=== PATIENT | female | born 1990 | race Caucasian/White ===

== ENCOUNTER 2018-04-07 02:16 | Emergency (ER) | payer BC ==
[2018-04-07] MEDS ORDERED: Iohexol 240 (50 ml) PO ONE (02:57)
--- NOTE | 2018-04-07 02:59 | ED PDOC ---
HPI: Abdomen Chief Complaint (Provider): abdominal pain History Per: Patient, Family History/Exam Limitations: no limitations Onset/Duration Of Symptoms: Hrs Current Symptoms Are (Timing): Still Present Location Of Pain/Discomfort: RLQ Quality Of Discomfort: "Pain" <Estefany West - Last Filed: 04/07/18 05:50> <Janice Vaughan A - Last Filed: 04/08/18 03:37> Time Seen by Provider: 04/07/18 02:37 Chief Complaint (Nursing): Abdominal Pain Additional Complaint(s): 27 y/o female presents for evaluation of right lower abdominal pain x 2 hours. Associated nausea. DEnies fever, vomiting, chest pain, shortness of breath, palpitations, changes in bowel movements, urinary symptoms. No improvement with tums. (Estefany West) Past Medical History Reviewed: Historical Data, Nursing Documentation, Vital Signs - Medical History PMH: Hypothyroidism - Family History Family History: States: No Known Family Hx - Living Arrangements Living Arrangements: With Family <Estefany West - Last Filed: 04/07/18 05:50> <Janice Vaughan - Last Filed: 04/08/18 03:37> Vital Signs: Last Vital Signs Temp 98.0 F 04/07/18 11:16 Pulse 70 04/07/18 11:16 Resp 16 04/07/18 11:16 BP 100/61 04/07/18 11:16 Pulse Ox 99 04/07/18 11:16 - Allergies Allergies/Adverse Reactions: Allergies Allergy/AdvReac Type Severity Reaction Status Date / Time No Known Allergies Allergy Verified 04/07/18 02:29 Review of Systems ROS Statement: Except As Marked, All Systems Reviewed And Found Negative Gastrointestinal: Positive for: Abdominal Pain <Estefany West - Last Filed: 04/07/18 05:50> Physical Exam - Reviewed Nursing Documentation Reviewed: Yes Vital Signs Reviewed: Yes - Physical Exam Appears: Positive for: Well, Non-toxic, Uncomfortable Head Exam: Positive for: ATRAUMATIC, NORMAL INSPECTION, NORMOCEPHALIC Skin: Positive for: Normal Color Eye Exam: Positive for: Normal appearance ENT: Positive for: Normal ENT Inspection Cardiovascular/Chest: Positive for: Regular Rate, Rhythm Respiratory: Positive for: Normal Breath Sounds Gastrointestinal/Abdominal: Positive for: Bowel Sounds, Soft, Tenderness (RLQ). Negative for: Guarding, Rebound Back: Positive for: Normal Inspection Extremity: Positive for: Normal ROM Neurologic/Psych: Positive for: Alert, Oriented <Estefany West - Last Filed: 04/07/18 05:50> - Laboratory Results Result Diagrams: 04/07/18 03:16 04/07/18 03:16 - ECG O2 Sat by Pulse Oximetry: 100 <Estefany West - Last Filed: 04/07/18 05:50> - Laboratory Results Result Diagrams: 04/07/18 03:16 04/07/18 03:16 <Janice Vaughan - Last Filed: 04/08/18 03:37> Disposition - Disposition Disposition Time: 06:00 Patient Signed Over To: Janice Vaughan Handoff Comments: pending CT <Estefany West - Last Filed: 04/07/18 05:50> - Patient ED Disposition Is Patient to be Admitted: Transfer of Care Counseled Patient/Family Regarding: Studies Performed, Diagnosis - Disposition Disposition: Transfer of Care Disposition Time: 07:00 Patient Signed Over To: Torri Lassiter <Janice Vaughan - Last Filed: 04/08/18 03:37> - Clinical Impression Clinical Impression: Abdominal pain - Disposition Referrals: Angie Manning [Outside] Condition: STABLE Instructions: Acute Abdomen (Belly Pain), Adult (DC) Forms: [employer] ([place]ian)
[2018-04-07] MEDS ORDERED: Iohexol 240 (50 ml) ONE (03:18)
[2018-04-07 03:20] LABS: BASO % 0.4 % (0.0-2.0); EOS # 0.2 K/uL (0.0-0.7); EOS % 2.4 % (0.0-4.0); HEMOGLOBIN 13.1 g/dL (12.0-16.0); LYMPH # 2.3 K/uL (1.0-4.3); LYMPH % 30.5 % (20.0-40.0); MEAN CELL VOLUME 86.1 fl (81.0-99.0); MEAN CORPUSCULAR HEMOGLOBIN 29.7 pg (27.0-31.0); MEAN CORPUSCULAR HGB CONC 34.5 g/dL (33.0-37.0); MONO # 0.6 K/uL (0.0-0.8); MONO % 8.1 % (0.0-10.0); NEUT # 4.4 K/uL (1.8-7.0); NEUT % 58.6 % (50.0-75.0); NRBC % 0.1 % (0.0-0.0); RBC 4.42 Mil/uL (3.80-5.20); RED CELL DISTRIBUTION WIDTH 13.3 % (11.5-14.5); WHITE BLOOD COUNT 7.6 K/uL (4.8-10.8)
[2018-04-07 03:29] LABS: ALB/GLOB RATIO 1.4 (1.0-2.1); ALBUMIN 4.2 g/dL (3.5-5.0); ALT/SGPT 17 U/L (9-52); AST/SGOT 23 U/L (14-36); BLOOD UREA NITROGEN 11 mg/dl (7-17); CALCIUM 9.3 mg/dL (8.4-10.2); GFR AFRICAN-AMERICAN > 60; GFR NON-AFRICAN AMERICAN > 60
[2018-04-07 03:33] LABS: PROTHROMBIN TIME 10.5 Seconds (9.8-13.1)
[2018-04-07 03:34] LABS: PARTIAL THROMBOPLASTIN TIME 29.2 Seconds (25.6-37.1)
[2018-04-07] MEDS ORDERED: Iohexol 300 100 ML IJ ONE (06:30)
[2018-04-07] MEDS ORDERED: Sodium Chloride 0.9% 1,000 ML IV STA (07:53)
--- NOTE | 2018-04-07 07:59 | ED PDOC ---
- Laboratory Results Result Diagrams: 04/07/18 03:16 04/07/18 03:16 - ECG O2 Sat by Pulse Oximetry: 100 Medical Decision Making Medical Decision Making: received patient endorsement from Dr. Vaughan. Patient had CT at 5:30am with normal reading by [facility]. He signed out to have US pelvis if CT is normal. US ordered 10.30a - patient is completely without pain. CT and US normal. labs unrevealing Disposition Doctor Will See Patient In The: Office Counseled Patient/Family Regarding: Diagnosis, Need For Followup - Clinical Impression Clinical Impression: Abdominal pain - POA Present On Arrival: None - Disposition Referrals: Angie Manning [Outside] Disposition: Routine/Home Disposition Time: 10:30 Condition: STABLE Instructions: Acute Abdomen (Belly Pain), Adult (DC) Forms: [employer] ([place])
[2018-04-07 08:05] VITALS: RESP 16
--- NOTE | 2018-04-07 09:39 | US ---
HISTORY: RLQ pain with normal CT scan COMPARISON: None available. TECHNIQUE: Transabdominal and transvaginal pelvic ultrasound was performed with longitudinal and transverse images submitted for interpretation. FINDINGS: UTERUS: Measures 7.6 x 3.6 x 5.4 cm. Normal in size and appearance. No fibroid or other mass lesion seen. ENDOMETRIUM: Measures 9.4 mm in diameter. Unremarkable. CERVIX: No cervical abnormality identified. RIGHT OVARY: Measures 2.9 x 1.7 x 3.4 cm. No solid mass. Normal flow. LEFT OVARY: Measures 3.1 x 1.8 x 3.2 cm. No solid mass. Normal flow. FREE FLUID: No significant free fluid noted. OTHER FINDINGS: None. IMPRESSION: Unremarkable pelvic ultrasound.
--- NOTE | 2018-04-07 10:40 | CT ---
PROCEDURE: CT Abdomen and Pelvis with contrast HISTORY: right lower abdominal pain COMPARISON: None. TECHNIQUE: Contrast dose: 90 mL Omnipaque 300 Radiation dose: Total exam DLP = 212.7 mGy-cm. This CT exam was performed using one or more of the following dose reduction techniques: Automated exposure control, adjustment of the mA and/or kV according to patient size, and/or use of iterative reconstruction technique. FINDINGS: LOWER THORAX: Unremarkable. LIVER: Unremarkable. No gross lesion or ductal dilatation. GALLBLADDER AND BILE DUCTS: Unremarkable. PANCREAS: Unremarkable. No gross lesion or ductal dilatation. SPLEEN: Unremarkable. ADRENALS: Unremarkable. No mass. KIDNEYS AND URETERS: Unremarkable. No hydronephrosis. No solid mass. VASCULATURE: Unremarkable. No aortic aneurysm. BOWEL: Unremarkable. No obstruction. No gross mural thickening. APPENDIX: Normal appendix. PERITONEUM: Unremarkable. No free fluid. No free air. LYMPH NODES: Unremarkable. No enlarged lymph nodes. BLADDER: Unremarkable. REPRODUCTIVE: Involuting left corpus luteal follicle. BONES: No acute fracture. OTHER FINDINGS: None. IMPRESSION: No acute abdominal pelvic pathology.
[2018-04-07 11:17] VITALS: BP 100/61; PULSE 70; TEMP 98; O2SAT 99
== END 2018-04-07 11:17 | disposition home or self-care (01) ==
LOC: H.ER 02:16
DX: R10.31 Right lower quadrant pain (principal); R11.0 Nausea; E03.9 Hypothyroidism, unspecified
CPT/HCPCS: 74177; 76857; 80053; 81025; 85025; 85610; 85730; 99283; J7030; Q9966; Q9967